=== PATIENT | male | born 1955 | race Caucasian/White ===

== ENCOUNTER → 2017-05-24 | Outpatient (CLI) | payer OTHER ==
--- NOTE | 2017-05-24 14:49 | CT ---
EXAMINATION TYPE: CT ChestAbdPelvis w con DATE OF EXAM: 05/24/2017 COMPARISON: 04/18/2015 HISTORY: Pleural effusion and abdominal bloating CT DLP: 1874 mGycm. Automated Exposure Control for Dose Reduction was Utilized. CONTRAST: CT scan of the thorax, abdomen and pelvis is performed with IV Contrast, patient injected with 100 mL of Omnipaque 300. FINDINGS: Some patient motion slightly limits the exam throughout the abdomen and pelvis. LUNGS: There is mild background centrilobular emphysematous change. A moderate right pleural effusion , similar in degree to the exam of 2015 with associated right basilar compressive atelectasis and sma ll left pleural effusion, mildly decreased in size from the prior exam of 2015 are redemonstrated. MEDIASTINUM: There are no greater than 1 cm hilar or mediastinal lymph nodes. Moderate pericardial ef fusion is also similar to the prior measuring up to 1.4 cm in thickness on series 3 image 47. The hea rt is enlarged. The main pulmonary artery is enlarged measuring 3.5 cm in transverse dimension. Ascen ding thoracic aorta is within normal limits of size measuring up to 3.4 cm. LIVER/GB: There is a cirrhotic morphology of the liver with mild nodularity of the hepatic contour an d generalized low attenuation. Perihepatic ascites and mesenteric congestion are moderate in degree a nd there is likely reactive minimal gallbladder wall hyperemia. No arterially enhancing hepatic kailee s are identified. PANCREAS: Moderate pancreatic parenchymal atrophy is noted. No ductal dilatation. SPLEEN: No significant abnormality is seen spleen is nonenlarged measuring 9.1 cm in craniocaudal dim ension. ADRENALS: Adrenal glands are mildly thickened, unchanged from the exam of 2015 most compatible with b enign adrenal gland hyperplasia. KIDNEYS: Kidneys enhance and excrete symmetrically. BOWEL: Bowel is nondilated. There is no evidence of congestive colopathy secondary to hepatocellular disease. GENITAL ORGANS: No gross abnormality seen. LYMPH NODES: Evaluation is slightly limited given the ascites and mesenteric congestion. Scattered no nenlarged mesenteric lymph nodes and pelvic lymph nodes are noted. No gross evidence of greater than 1cm abdominal or pelvic lymph nodes are appreciated. OSSEOUS STRUCTURES: Mild multilevel degenerative disc disease of the visualized thoracolumbar and lum bosacral spine are present. OTHER: Mild calcific and noncalcific atheromatous plaquing is seen of the abdominal aorta and its bra nches. IMPRESSION: 1. Cirrhotic quality of the liver with moderate perihepatic ascites and mesenteric congestion. No spl enomegaly to suggest portal venous hypertension. 2. Similar appearing moderate right pleural effusion and slightly decreased small left pleural effusi on in comparison to exam of 2015 with associated bibasilar compressive atelectasis. 3. Mild centrilobular pulmonary emphysema. 4. Moderate pericardial effusion measuring up to 1.4 cm in thickness, similar to exam of 2015. 5. Main pulmonary arterial enlargement that may clinically correlate with pulmonary arterial hyperten trish.
== END | disposition home or self-care (01) ==
LOC: RADCTMAIN 12:16
PROVIDERS: ATTEND Family Medicine
DX: J90 Pleural effusion, not elsewhere classified (principal); J98.11 Atelectasis; J43.2 Centrilobular emphysema; I31.3 Pericardial effusion (noninflammatory); I28.8 Other diseases of pulmonary vessels; K74.60 Unspecified cirrhosis of liver; R18.8 Other ascites; R19.00 Intra-abdominal and pelvic swelling, mass and lump, unspecified site
CPT/HCPCS: 71260; 74177; Q9967

== ENCOUNTER 2017-05-27 15:42 | Inpatient (IN) | payer OTHER ==
[2017-05-27] MEDS ORDERED: SODIUM CHLORIDE 0.9% 500 ML IV ONE (16:17)
--- NOTE | 2017-05-27 16:35 | ED ---
General Adult HPI - General Chief complaint: Shortness of Breath Stated complaint: SOB Time Seen by Provider: 05/27/17 15:54 Source: patient, RN notes reviewed, old records reviewed Mode of arrival: ambulatory Limitations: no limitations - History of Present Illness Initial comments: 62-year-old male history of A. fib and tachycardia-induced cardiomyopathy presents for evaluation of worsening dyspnea. Patient's currently on digoxin, anticoagulation, amiodarone and metoprolol. He states his dyspnea has worsened over the past week. Denies chest pain. Patient has had cough and lower extremity swelling. Patient denies nausea vomiting or diarrhea. Denies fever or chills. - Related Data Home Medications Medication Instructions Recorded Confirmed Multivitamins, Thera [Multivitamin 1 tab PO DAILY 04/19/15 05/27/17 (formulary)] Aspirin 81 mg PO HS 05/27/17 05/27/17 Carvedilol 25 mg PO BID 05/27/17 05/27/17 Furosemide [Lasix] 80 mg PO DAILY 05/27/17 05/27/17 Spironolactone [Aldactone] 25 mg PO DAILY 05/27/17 05/27/17 Ubidecarenone [Co Q-10] 100 mg PO DAILY 05/27/17 05/27/17 Vitamin E 1,000 unit PO DAILY 05/27/17 05/27/17 Warfarin [Coumadin] 5 mg PO DAILY 05/27/17 05/27/17 Allergies Allergy/AdvReac Type Severity Reaction Status Date / Time No Known Allergies Allergy Verified 05/27/17 16:25 Review of Systems ROS Statement: Those systems with pertinent positive or pertinent negative responses have been documented in the HPI. ROS Other: All systems not noted in ROS Statement are negative. Past Medical History Past Medical History: No Reported History History of Any Multi-Drug Resistant Organisms: None Reported Past Surgical History: No Surgical Hx Reported Additional Past Surgical History / Comment(s): broken leg when younger , afib Past Psychological History: No Psychological Hx Reported Smoking Status: Former smoker Past Alcohol Use History: None Reported Past Drug Use History: None Reported - Past Family History Father Family Medical History: Diabetes Mellitus Mother Additional Family Medical History / Comment(s): mental disorder - unspecified Sister(s) History Unknown: Yes Brother(s) History Unknown: Yes General Exam Limitations: no limitations General appearance: alert, in no apparent distress Head exam: Present: atraumatic, normocephalic Eye exam: Present: normal appearance, PERRL ENT exam: Present: normal exam Neck exam: Present: normal inspection. Absent: tenderness, meningismus Respiratory exam: Present: normal lung sounds bilaterally, rales (Final rales on lung base). Absent: respiratory distress Cardiovascular Exam: Present: tachycardia, irregular rhythm GI/Abdominal exam: Present: soft, distended. Absent: tenderness, guarding Extremities exam: Present: normal capillary refill, pedal edema Neurological exam: Present: alert, oriented X3, CN II-XII intact. Absent: motor sensory deficit Psychiatric exam: Present: normal affect, normal mood Skin exam: Present: warm, dry, intact. 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 Worker ] Respiratory 38 H 18 30 H Rate Blood Pressure Blood Pressure 76/54 79/50 76/55 [Sitting] O2 Sat by Pulse 98 99 99 Oximetry 05/27/17 05/27/17 05/27/17 17:00 17:10 17:20 Temperature Pulse Rate Pulse Rate [ 144 H 158 H 157 H 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 Off Worker ] Respiratory 30 H 30 H 28 H Rate Blood Pressure Blood Pressure 85/48 100/60 86/69 [Sitting] O2 Sat by Pulse 99 100 100 Oximetry 05/27/17 05/27/17 05/27/17 17:30 17:40 17:50 Temperature Pulse Rate Pulse Rate [ 142 H 132 H 150 H 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 Worker ] Respiratory 28 H 28 H 28 H Rate Blood Pressure Blood Pressure 98/72 85/64 85/66 [Sitting] O2 Sat by Pulse 100 100 99 Oximetry 05/27/17 05/27/17 18:00 18:30 Temperature Pulse Rate Pulse Rate [ 148 H 156 H 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 fib with RVR, patient is hypotensive. Mentating normally. Heart rate ranging from 130s to 180s. Patient has no chest pain. He denies missing any of his medication. He is currently on digoxin, anticoagulation, amiodarone and metoprolol. He is not a great historian when it comes to his medications although he states he has been taking them. Case is discussed with Dr. Moon given the low blood pressure and A. fib, recommends amiodarone effusion and metoprolol. These will be given with caution as patient's blood pressure is low. He does receive 500 mL is of normal saline bolus. Laboratory studies reveal hemoglobin 10.0, white blood cell count 7.0, troponin is negative. Lactic acid is elevated 2.5 secondary to hypotension [place] [address]. Echo will be obtained. Case is discussed with Dr. Mcrae who accepts patient to the ICU. Diagnosis: A. fib with RVR, congestive heart failure, hypertension. - Lab Data Result diagrams: 05/27/17 16:35 05/27/17 16:35 Lab Results 05/27/17 05/27/17 05/27/17 Range/Units 16:35 16:35 16:35 WBC 7.0 (3.8-10.6) k/uL RBC 4.34 (4.30-5.90) m/uL Hgb 10.0 L (13.0-17.5) gm/dL Hct 34.7 L (39.0-53.0) % MCV 79.9 L (80.0-100.0) fL MCH 23.0 L (25.0-35.0) pg MCHC 28.9 L (31.0-37.0) g/dL RDW 17.8 H (11.5-15.5) % Plt Count 113 L (150-450) k/uL Neutrophils % 77 % Lymphocytes % 14 % Monocytes % 6 % Eosinophils % 0 % Basophils % 0 % Neutrophils # 5.4 (1.3-7.7) k/uL Lymphocytes # 1.0 (1.0-4.8) k/uL Monocytes # 0.4 (0-1.0) k/uL Eosinophils # 0.0 (0-0.7) k/uL Basophils # 0.0 (0-0.2) k/uL Hypochromasia Marked Poikilocytosis Slight Anisocytosis Slight Microcytosis Slight PT (9.0-12.0) sec INR (<1.2) APTT (22.0-30.0) sec Sodium 134 L (137-145) mmol/L Potassium 4.6 (3.5-5.1) mmol/L Chloride 97 L (98-107) mmol/L Carbon Dioxide 23 (22-30) mmol/L Anion Gap 14 mmol/L BUN 44 H (9-20) mg/dL Creatinine 1.00 (0.66-1.25) mg/dL Est GFR (MDRD) Af Amer >60 (>60 ml/min/1.73 sqM) Est GFR (MDRD) Non-Af >60 (>60 ml/min/1.73 sqM) Glucose 105 H (74-99) mg/dL Plasma Lactic Acid Ronnie 3.5 H* (0.7-2.0) mmol/L Calcium 9.0 (8.4-10.2) mg/dL Magnesium 2.2 (1.6-2.3) mg/dL Total Bilirubin 2.5 H (0.2-1.3) mg/dL AST 36 (17-59) U/L ALT 34 (21-72) U/L Alkaline Phosphatase 154 H (38-126) U/L Total Creatine Kinase (55-170) U/L CK-MB (CK-2) (0.0-2.4) ng/mL CK-MB (CK-2) Rel Index Troponin I (0.000-0.034) ng/mL NT-Pro-B Natriuret Pep pg/mL Total Protein 6.8 (6.3-8.2) g/dL Albumin 3.2 L (3.5-5.0) g/dL Digoxin 0.7 ng/mL 05/27/17 05/27/17 05/27/17 Range/Units 16:35 16:35 16:35 WBC (3.8-10.6) k/uL RBC (4.30-5.90) m/uL Hgb (13.0-17.5) gm/dL Hct (39.0-53.0) % MCV (80.0-100.0) fL MCH (25.0-35.0) pg MCHC (31.0-37.0) g/dL RDW (11.5-15.5) % Plt Count (150-450) k/uL Neutrophils % % Lymphocytes % % Monocytes % % Eosinophils % % Basophils % % Neutrophils # (1.3-7.7) k/uL Lymphocytes # (1.0-4.8) k/uL Monocytes # (0-1.0) k/uL Eosinophils # (0-0.7) k/uL Basophils # (0-0.2) k/uL Hypochromasia Poikilocytosis Anisocytosis Microcytosis PT 17.2 H (9.0-12.0) sec INR 1.9 H (<1.2) APTT 26.5 (22.0-30.0) sec Sodium (137-145) mmol/L Potassium (3.5-5.1) mmol/L Chloride (98-107) mmol/L Carbon Dioxide (22-30) mmol/L Anion Gap mmol/L BUN (9-20) mg/dL Creatinine (0.66-1.25) mg/dL Est GFR (MDRD) Af Amer (>60 ml/min/1.73 sqM) Est GFR (MDRD) Non-Af (>60 ml/min/1.73 sqM) Glucose (74-99) mg/dL Plasma Lactic Acid Ronnie (0.7-2.0) mmol/L Calcium (8.4-10.2) mg/dL Magnesium (1.6-2.3) mg/dL Total Bilirubin (0.2-1.3) mg/dL AST (17-59) U/L ALT (21-72) U/L Alkaline Phosphatase (38-126) U/L Total Creatine Kinase 39 L (55-170) U/L CK-MB (CK-2) 0.6 (0.0-2.4) ng/mL CK-MB (CK-2) Rel Index 1.5 Troponin I <0.012 (0.000-0.034) ng/mL NT-Pro-B Natriuret Pep 08330 pg/mL Total Protein (6.3-8.2) g/dL Albumin (3.5-5.0) g/dL Digoxin ng/mL Critical Care Time Critical Care Time: Yes Total Critical Care Time: 35 Disposition Clinical Impression: Atrial fibrillation with RVR, Congestive heart failure Disposition: ADMITTED IP TO THIS [facility] Condition: Serious Referrals: Demario Aragon MD [Primary Care Provider] - 1-2 days Decision to Admit Reason: Admit from EC Decision Date: 05/27/17 Decision Time: 19:05
[2017-05-27] MEDS ORDERED: AMIODARONE 450 MG in DEXTROSE 5% IN WATER 250 ML IV ONE ×2 (16:50)
--- NOTE | 2017-05-27 16:52 | XR ---
EXAMINATION TYPE: XR chest 1V portable DATE OF EXAM: 05/27/2017 COMPARISON: 04/18/2015 HISTORY: Short of breath TECHNIQUE: Single frontal view of the chest is obtained. FINDINGS: Heart is enlarged. There is blunting of right costophrenic angle with moderate right pleur al effusion. There is mild pulmonary congestion. There are chest leads. IMPRESSION: There is right pleural effusion that is increased compared to old exam. There is clearin g of left pleural effusion compared to old exam. There is evidence for mild heart failure.
[2017-05-27 16:53] LABS: Anisocytosis Slight; Basophils % (A) 0 %; Eosinophils % (A) 0 %; HCT 34.7 % (39.0-53.0); Hypochromasia Marked; Lymphocytes % (A) 14 %; MCHC 28.9 g/dL (31.0-37.0); MCV 79.9 fL (80.0-100.0); Mean Platelet Volume 8.1; Microcytosis Slight; Monocytes # (A) 0.4 k/uL (0-1.0); Monocytes % (A) 6 %; Neutrophils # (A) 5.4 k/uL (1.3-7.7); Neutrophils % (A) 77 %; Platelet Count 113 k/uL (150-450); Poikilocytosis Slight; RBC 4.34 m/uL (4.30-5.90); RDW 17.8 % (11.5-15.5)
[2017-05-27 17:00] LABS: ALT 34 U/L (21-72); AST 36 U/L (17-59); Albumin 3.2 g/dL (3.5-5.0); Alkaline Phosphatase 154 U/L (38-126); Anion Gap 14 mmol/L; Blood Urea Nitrogen 44 mg/dL (9-20); Carbon Dioxide 23 mmol/L (22-30); Chloride 97 mmol/L (98-107); Digoxin 0.7 ng/mL; Glucose 105 mg/dL (74-99); Magnesium 2.2 mg/dL (1.6-2.3); Potassium 4.6 mmol/L (3.5-5.1); Sodium 134 mmol/L (137-145); Total Bilirubin 2.5 mg/dL (0.2-1.3); Total Protein 6.8 g/dL (6.3-8.2)
[2017-05-27] MEDS ORDERED: METOPROLOL TARTRATE 5 MG/5 ML VIAL IVP SCH (17:00)
[2017-05-27 17:09] LABS: INR 1.9 (<1.2); Partial Thromboplastin Time 26.5 sec (22.0-30.0); Prothrombin Time 17.2 sec (9.0-12.0)
[2017-05-27 17:16] LABS: Creatine Kinase 39 U/L (55-170)
[2017-05-27] MEDS ORDERED: SODIUM CHLORIDE 0.9% 200 ML IV ONE (17:25)
[2017-05-27 17:28] LABS: Creatine Kinase MB 0.6 ng/mL (0.0-2.4); Troponin I <0.012 ng/mL (0.000-0.034)
[2017-05-27] MEDS ORDERED: NALOXONE 0.4 MG/ML 1 ML VIAL IV PRN (18:53)
[2017-05-27 20:40] LABS: Glucose,Whole Blood 125 mg/dL (75-99)
[2017-05-27] MEDS ORDERED: FUROSEMIDE 40 MG TAB PO STA (21:11)
[2017-05-27] MEDS ORDERED: DEXTROSE 5% IN WATER 250 ML with AMIODARONE 300 MG IV ONE (21:30)
[2017-05-27 21:31] LABS: Appearance,Urine Cloudy (Clear); Bacteria,Urine Occasional /hpf; Bilirubin,Urine Negative (Negative); Blood,Urine Negative (Negative); Cellular Casts,Urine 5 /lpf (0); Color,Urine Dark Yellow; Glucose,Urine (UA) Negative (Negative); Granular Casts,Urine 26 /lpf (0); Hyaline Casts,Urine 5 /lpf (0-2); Ketones,Urine Negative (Negative); Leukocyte Esterase,Urine Negative (Negative); Mucus,Urine Few /hpf; Nitrite,Urine Negative (Negative); Protein,Urine 1+ (Negative); RBC,Urine 1 /hpf (0-5); Specific Gravity,Urine 1.019 (1.001-1.035); Squamous Epithelial Cell,Urine 1 /hpf (0-4); WBC,Urine 4 /hpf (0-5)
[2017-05-28] MEDS: HEPARIN SODIUM,PORCINE 5,000 UNIT/ML 1 ML VIAL SQ SCH ×2 (00:06→08:21)
[2017-05-28 00:19] VITALS: TEMP 98.1
[2017-05-28] MEDS ORDERED: AMIODARONE 450 MG in DEXTROSE 5% IN WATER 250 ML IV SCH ×2 (03:06)
[2017-05-28 05:01] LABS: Anisocytosis Slight; Basophils % (A) 0 %; Eosinophils % (A) 1 %; HCT 35.5 % (39.0-53.0); HGB 10.3 gm/dL (13.0-17.5); Hypochromasia Marked; Lymphocytes # (A) 2.1 k/uL (1.0-4.8); Lymphocytes % (A) 25 %; MCH 23.5 pg (25.0-35.0); MCHC 29.1 g/dL (31.0-37.0); MCV 80.8 fL (80.0-100.0); Mean Platelet Volume 10.2; Monocytes # (A) 0.7 k/uL (0-1.0); Monocytes % (A) 9 %; Neutrophils # (A) 4.9 k/uL (1.3-7.7); Neutrophils % (A) 60 %; Platelet Count 124 k/uL (150-450); RBC 4.39 m/uL (4.30-5.90); RDW 17.8 % (11.5-15.5); WBC 8.1 k/uL (3.8-10.6)
[2017-05-28 05:22] LABS: ALT 36 U/L (21-72); AST 35 U/L (17-59); Albumin 3.3 g/dL (3.5-5.0); Alkaline Phosphatase 148 U/L (38-126); Anion Gap 15 mmol/L; Blood Urea Nitrogen 48 mg/dL (9-20); Calcium 9.1 mg/dL (8.4-10.2); Carbon Dioxide 21 mmol/L (22-30); Chloride 97 mmol/L (98-107); Glucose 129 mg/dL (74-99); Magnesium 2.2 mg/dL (1.6-2.3); Phosphorus 4.3 mg/dL (2.5-4.5); Potassium 5.2 mmol/L (3.5-5.1); Sodium 133 mmol/L (137-145); Total Bilirubin 2.5 mg/dL (0.2-1.3); Total Protein 6.9 g/dL (6.3-8.2)
[2017-05-28 05:27] LABS: INR 1.7 (<1.2); Prothrombin Time 15.8 sec (9.0-12.0)
[2017-05-28] MEDS ORDERED: LIDOCAINE 2% INJ 20 MG/ML (20 ML MDV) ONE ×2 (05:35→06:01)
[2017-05-28] MEDS ORDERED: SODIUM CHLORIDE 0.9% 500 ML IV ONE ×3 (05:41→06:34)
[2017-05-28] MEDS ORDERED: EPINEPHrine 10 ML SYRINGE (0.1 MG/ML) IV ONE ×4 (05:45→06:02)
[2017-05-28] MEDS ORDERED: SODIUM BICARB 8.4% 50 ML SYR (1 MEQ/ML) IV ONE (05:50)
[2017-05-28] MEDS ORDERED: ATROPINE SULFATE 0.1 MG/ML 10ML SYRINGE IVP ONE ×2 (05:50→06:05)
[2017-05-28] MEDS ORDERED: NOREPINEPHRIN 4 MG-0.9% NS PMX 4 MG/250 ML ML IV ONE (05:59)
[2017-05-28] MEDS ORDERED: SODIUM CHLORIDE 0.9% 99 ML with VASOPRESSIN 20 UNIT IV SCH ×2 (06:00)
[2017-05-28] MEDS ORDERED: LIDOCAINE 2% INJ 20 MG/ML SQ ONE (06:03)
--- NOTE | 2017-05-28 06:21 | P.PCN ---
Preoperative Diagnosis: Transvenous temporary pacing procedure Indication for the procedure: Severe underlying bradycardia complete heart block , patient went asystolic required CPR in the Surgical Aide ACLS protocol, return of pulse and rhythm, TVP placed Patient was brought to the EP lab in a fasting state. Written informed consent was obtained prior to the procedure. The right groin was prepped and draped as a protocol. A 6-Colomb[place] sheath was placed in the right femoral vein. Via this, a temporary pacing catheter was placed in the right ventricle. Thresholds were interrogated. Temporary pacing was performed through the rest of the procedure. At the end of the entire procedure, the TVP was removed. The sheath was removed and hemostasis was assured. Patient tolerated the procedure well without any acute complications. Procedure performed Transvenous temporary pacing
[2017-05-28 07:06] LABS: Glucose,Whole Blood 132 mg/dL (75-99)
[2017-05-28] MEDS ORDERED: NOREPINEPHRIN 16 MG-0.9%NS PMX 16 MG/250 ML ML IV SCH (08:15)
[2017-05-28] MEDS ORDERED: PANTOPRAZOLE 40 MG/10 ML VIAL IV SCH (09:00)
[2017-05-28 09:56] LABS: ABG HCO3 14 mmol/L (21-25); ABG PCO2 39 mmHg (35-45); ABG PH 7.18 (7.35-7.45); ABG PO2 107 mmHg (83-108); ABG TCO2 15 mmol/L (19-24)
[2017-05-28 09:57] LABS: ABG Base Excess -12.9 mmol/L
[2017-05-28] MEDS ORDERED: SODIUM BICARB SYR (1 MEQ/ML) 10 ML SYRINGE ONE (10:00)
[2017-05-28] MEDS ORDERED: EPINEPHrine 10 ML SYRINGE (0.1 MG/ML) ONE (10:00)
[2017-05-28] MEDS ORDERED: ATROPINE SULFATE 0.1 MG/ML 10ML SYRINGE ONE (10:00)
--- NOTE | 2017-05-28 10:23 | XR ---
EXAMINATION TYPE: XR chest 1V portable DATE OF EXAM: 05/28/2017 HISTORY: post intubation. REFERENCE: Previous study dated 05/27/2017. FINDINGS: The patient is intubated. ET tube is in satisfactory position with the tip being 4 cm from the braxton. An NG tube is been placed. Its tip is in the stomach. The heart is enlarged. There is a worsening right-sided pleural reaction likely representing fluid. T here are some questionable opacity in the left midlung. The heart is enlarged. IMPRESSION: 1. SATISFACTORY ET TUBE PLACEMENT. 2. MODERATE RIGHT-SIDED PLEURAL EFFUSION. 3. CARDIOMEGALY. 4. I COULD NOT EXCLUDE SOME AIRSPACE DISEASE IN THE LEFT MIDLUNG.
[2017-05-28] MEDS ORDERED: MORPHINE SULFATE 2 MG/ML SYRINGE IV PRN ×2 (11:33)
--- NOTE | 2017-05-28 11:36 | P.CNPUL ---
History of Present Illness Consult date: 05/28/17 Reason for consult: dyspnea, hypoxemia, pleural effusion, abnormal CXR/CT Chief complaint: Shortness of breath History of present illness: Consult dated 05/28/2017 This is a 62-year-old male who was admitted on May 27. He initially came into the emergency room with atrial fibrillation with rapid ventricular response and congestive heart failure. Subsequent to that, while in the ICU, he developed bradycardia. The application security engineer came in and placed a transvenous pacemaker. Unfortunately the patient had cardiopulmonary arrest 2. The first time, he rested for about 5 minutes had cardiopulmonary resuscitation and return of spontaneous circulation. The second time unfortunately the rest was much longer for about 40 minutes with prolonged CPR and eventual return of spontaneous circulation. Currently the patient's on mechanical ventilator. He is on the assist control mode rate of 20 tidal volume is 450 FiO2 is 100% and PEEP is 5. Arterial blood gases show a PaO2 of 107 a PaCO2 of 39 and a pH is 7.18. The patient's on a saline IV at 100 mL an hour norepinephrine at 50 mcg/ m and vasopressin appointment 03 units per minute. The chest x-ray shows a right-sided pleural effusion and possible left midlung airspace disease. The patient is totally unresponsive. He does breathe over the ventilator. No corneal reflex. No gag reflex. No pupillary reflex. Doll's eyes reflexes are absent. No response to verbal painful stimuli. I did have a long conversation with the family including 1 sister and 2 brothers. They're inclined to withdraw life support on this patient. They will let me know. Review of Systems ROS unobtainable: due to endotracheal tube Past Medical History Past Medical History: Atrial Fibrillation, Deep Vein Thrombosis (DVT), Hypertension, Thyroid Disorder Additional Past Medical History / Comment(s): broken rt leg as child,"told he has an overactive thyroid. blood clot behind lt knee. per 2015 summary it was mentioned that pt had chf, copd, cardiomyopathy but pt stated was not aware of this. History of Any Multi-Drug Resistant Organisms: None Reported Past Surgical History: No Surgical Hx Reported Additional Past Surgical History / Comment(s): broken leg when younger , afib Past Anesthesia/Blood Transfusion Reactions: No Reported Reaction Past Psychological History: No Psychological Hx Reported Additional Psychological History / Comment(s): pt lives with his brother. uses a cane when up. n o home care services. Smoking Status: Former smoker Past Alcohol Use History: Occasional Additional Past Alcohol Use History / Comment(s): started smoking 1971 and derek 2014 smoked 1 ppd. Past Drug Use History: Marijuana Additional Drug Use History / Comment(s): smoked marijuana and used crack-quit 2007 - Past Family History Father Family Medical History: Diabetes Mellitus Mother Additional Family Medical History / Comment(s): mental disorder - unspecified Sister(s) History Unknown: Yes Brother(s) History Unknown: Yes Medications and Allergies Home Medications Medication Instructions Recorded Confirmed Type Multivitamins, Thera [Multivitamin 1 tab PO DAILY 04/19/15 05/27/17 History (formulary)] Aspirin 81 mg PO HS 05/27/17 05/27/17 History Carvedilol 25 mg PO BID 05/27/17 05/27/17 History Furosemide [Lasix] 80 mg PO DAILY 05/27/17 05/27/17 History Spironolactone [Aldactone] 25 mg PO DAILY 05/27/17 05/27/17 History Ubidecarenone [Co Q-10] 100 mg PO DAILY 05/27/17 05/27/17 History Vitamin E 1,000 unit PO DAILY 05/27/17 05/27/17 History Warfarin [Coumadin] 5 mg PO DAILY 05/27/17 05/27/17 History Allergies Allergy/AdvReac Type Severity Reaction Status Date / Time No Known Allergies Allergy Verified 05/27/17 16:25 Physical Exam Osteopathic Statement: *. No significant issues noted on an osteopathic structural exam other than those noted in the History and Physical/Consult. Vitals: Vital Signs Temp Pulse Pulse Resp BP BP Pulse Ox 05/28/17 10:40 80 23 85/48 99 05/28/17 10:30 79 23 95/53 99 05/28/17 10:20 80 23 86/57 99 05/28/17 10:10 80 24 86/57 99 05/28/17 10:00 79 24 87/52 99 05/28/17 09:50 80 25 H 87/53 98 05/28/17 09:40 80 24 97 05/28/17 09:30 80 24 93 L 05/28/17 09:20 79 25 H 63/43 41 L 05/28/17 09:10 79 25 H 68/44 38 L 05/28/17 09:00 79 24 42 L 05/28/17 08:50 83 24 36/26 44 L 05/28/17 08:40 80 23 87 L 05/28/17 08:30 80 23 91 L 05/28/17 08:20 79 21 94 L 05/28/17 08:10 80 20 96 05/28/17 08:00 79 19 100 05/28/17 07:50 79 17 44/25 100 05/28/17 07:40 89 23 05/28/17 07:30 89 19 76 L 05/28/17 07:20 66 81/63 05/28/17 07:10 50 L 204/133 05/28/17 07:00 0 L 204/133 98 05/28/17 05:30 70/48 90 L 05/28/17 05:20 37 H 73/55 86 L 05/28/17 05:10 82 H 76/68 85 L 05/28/17 05:00 48 L 55 H 71/60 94 L 05/28/17 04:50 32 L 35 H 79/51 98 05/28/17 04:40 36 L 21 76/50 96 05/28/17 04:30 127 H 17 76/58 97 05/28/17 04:20 134 H 25 H 76/58 98 05/28/17 04:10 133 H 25 H 78/67 98 05/28/17 04:00 128 H 32 H 73/57 97 05/28/17 03:50 125 H 27 H 73/57 97 05/28/17 03:40 130 H 34 H 76/59 98 05/28/17 03:30 113 H 26 H 80/51 98 18 03:20 139 H 22 99 05/28/17 03:10 117 H 37 H 79/57 99 05/28/17 03:00 121 H 30 H 79/57 99 05/28/17 02:30 142 H 32 H 72/58 100 18 02:00 153 H 28 H 79/62 99 05/28/17 01:30 120 H 25 H 75/63 98 05/28/17 01:00 127 H 22 76/58 99 05/28/17 00:45 135 H 26 H 75/56 99 05/28/17 00:30 138 H 28 H 70/56 100 18 00:15 129 H 34 H 100 05/28/17 00:00 98.1 F 141 H 24 70/56 100 05/27/17 23:45 137 H 39 H 81/60 100 18 23:30 130 H 30 H 72/56 100 18 23:15 143 H 43 H 72/56 100 05/27/17 23:00 140 H 21 72/56 100 05/27/17 22:45 151 H 41 H 68/60 100 18 22:30 138 H 57 H 71/58 99 05/27/17 22:15 117 H 43 H 59/32 100 05/27/17 22:00 145 H 36 H 76/61 99 05/27/17 21:45 125 H 31 H 83/63 95 05/27/17 21:40 147 H 32 H 77/63 97 05/27/17 21:30 141 H 33 H 83/66 100 05/27/17 21:20 135 H 37 H 81/59 99 05/27/17 21:10 157 H 26 H 105/74 98 05/27/17 21:00 133 H 43 H 71/53 97 05/27/17 20:50 144 H 53 H 73/50 98 05/27/17 20:40 96.8 F L 172 H 28 H 100 05/27/17 20:00 98.3 F 150 H 30 H 96/57 100 05/27/17 19:30 135 H 28 H 95/57 99 05/27/17 19:00 133 H 30 H 96/53 100 05/27/17 18:30 156 H 28 H 100/69 100 18 18:00 148 H 28 H 93/66 100 18 17:50 150 H 28 H 85/66 99 05/27/17 17:40 132 H 28 H 85/64 100 05/27/17 17:30 142 H 28 H 98/72 100 18 17:20 157 H 28 H 86/69 100 05/27/17 17:10 158 H 30 H 100/60 100 18 17:00 144 H 30 H 85/48 99 05/27/17 16:55 145 H 30 H 76/55 99 05/27/17 16:45 161 H 18 79/50 99 05/27/17 16:30 168 H 38 H 76/54 98 05/27/17 16:22 148 H 34 H 73/58 05/27/17 16:07 155 H 38 H 80/56 99 05/27/17 15:47 98.9 F 66 44 H 144/89 93 L Intake and Output 05/27/17 05/28/17 05/28/17 22:59 06:59 14:59 Intake Total 49.917 1075.3 1300 Output Total 50 130 135 Balance -0.083 945.3 1165 Intake: IV 20 1075.3 1300 0.9 KVO 20 80 1300 Intake, IV Titration 29.917 Amount Amiodarone 450 mg In 29.917 Dextrose 5% in Water 250 ml @ 1 MG/MIN 34.53 mls/ hr IV .[id number] ONE Rx#: [id number] Output: Urine 50 130 135 Other: Voiding Method Indwelling Catheter Indwelling Catheter Weight 73.482 kg 75.6 kg No acute distress. No response to verbal or painful stimuli. The patient does over breathe the ventilator. HEENT examination is grossly unremarkable. Mucous membranes are moist. No oral lesions. No pupillary reflex. No corneal reflex. No gag reflex. Neck supple. Full range of motion. No adenopathy thyromegaly or neck vein distention. Cardiovascular examination reveals regular rhythm rate. S1-S2 normal. No S3 or S4. No discernible murmur noted. Lungs reveal clear breath sounds. Her sounds are equal bilaterally. No adventitious lung sounds including wheezes rhonchi or crackles. Abdomen soft bowel sounds are heard. No masses or tenderness. Extremities are intact. No cyanosis clubbing or edema. Skin is without rash or lesion. Neurologic examination reveals no response to verbal or painful stimuli. The patient does over breathe the ventilator. No corneal reflex. No gag reflex. No pupillary reflex. Results - Laboratory Findings CBC and BMP: 05/28/17 04:45 05/28/17 04:45 ABG ABG pH 7.18 (7.35-7.45) L* 05/28/17 09:47 ABG pCO2 39 mmHg (35-45) 05/28/17 09:47 ABG pO2 107 mmHg (83-108) 05/28/17 09:47 ABG O2 Saturation 97.0 % (94-97) 05/28/17 09:47 PT/INR, D-dimer PT 15.8 sec (9.0-12.0) H 05/28/17 05:05 INR 1.7 (<1.2) H 05/28/17 05:05 Abnormal lab findings: Abnormal Labs 05/27/17 05/27/17 05/27/17 16:35 16:35 16:35 Hgb 10.0 L Hct 34.7 L MCV 79.9 L MCH 23.0 L MCHC 28.9 L RDW 17.8 H Plt Count 113 L PT INR ABG pH ABG HCO3 ABG Total CO2 Sodium 134 L Potassium Chloride 97 L Carbon Dioxide BUN 44 H Creatinine Glucose 105 H POC Glucose (mg/dL) Plasma Lactic Acid Ronnie 3.5 H* Total Bilirubin 2.5 H Alkaline Phosphatase 154 H Total Creatine Kinase Albumin 3.2 L Urine Protein Urine Bacteria Hyaline Casts Urine Mucus 05/27/17 05/27/17 05/27/17 16:35 16:35 20:38 Hgb Hct MCV MCH MCHC RDW Plt Count PT 17.2 H INR 1.9 H ABG pH ABG HCO3 ABG Total CO2 Sodium Potassium Chloride Carbon Dioxide BUN Creatinine Glucose POC Glucose (mg/dL) 125 H Plasma Lactic Acid Ronnie Total Bilirubin Alkaline Phosphatase Total Creatine Kinase 39 L Albumin Urine Protein Urine Bacteria Hyaline Casts Urine Mucus 05/27/17 05/27/17 05/28/17 20:55 21:16 04:45 Hgb 10.3 L Hct 35.5 L MCV MCH 23.5 L MCHC 29.1 L RDW 17.8 H Plt Count 124 L PT INR ABG pH ABG HCO3 ABG Total CO2 Sodium Potassium Chloride Carbon Dioxide BUN Creatinine Glucose POC Glucose (mg/dL) Plasma Lactic Acid Ronnie 3.2 H* Total Bilirubin Alkaline Phosphatase Total Creatine Kinase Albumin Urine Protein 1+ H Urine Bacteria Occasional H Hyaline Casts 5 H Urine Mucus Few H 05/28/17 05/28/17 05/28/17 04:45 05:05 07:03 Hgb Hct MCV MCH MCHC RDW Plt Count PT 15.8 H INR 1.7 H ABG pH ABG HCO3 ABG Total CO2 Sodium 133 L Potassium 5.2 H Chloride 97 L Carbon Dioxide 21 L BUN 48 H Creatinine 1.29 H Glucose 129 H POC Glucose (mg/dL) 132 H Plasma Lactic Acid Ronnie Total Bilirubin 2.5 H Alkaline Phosphatase 148 H Total Creatine Kinase Albumin 3.3 L Urine Protein Urine Bacteria Hyaline Casts Urine Mucus 05/28/17 09:47 Hgb Hct MCV MCH MCHC RDW Plt Count PT INR ABG pH 7.18 L* ABG HCO3 14 L ABG Total CO2 15 L Sodium Potassium Chloride Carbon Dioxide BUN Creatinine Glucose POC Glucose (mg/dL) Plasma Lactic Acid Ronnie Total Bilirubin Alkaline Phosphatase Total Creatine Kinase Albumin Urine Protein Urine Bacteria Hyaline Casts Urine Mucus - Diagnostic Findings Chest x-ray: image reviewed (Labs x-rays medications are all reviewed.) Assessment and Plan Assessment: Assessment Status post cardiopulmonary arrest with prolonged resuscitation and probable anoxic brain injury. Atrial fibrillation with rapid ventricular response. Congestive heart failure. Bradycardia requiring transvenous pacemaker insertion Suspected severe anoxic brain injury History of hypertension History of atrial fibrillation Plan: Plan I had a long discussion with the family. The family's inclination is to withdraw life support and make the patient comfortable. I think that's very appropriate given his current situation. The patient was placed on a morphine drip. We'll add a scopolamine patch. We can use Ativan for sedation. No additional recommendations are made. Prognosis is very poor. His neurologic examination has been documented. No gag reflex. No response to verbal or painful stimuli. Absent doll's eyes. No pupillary reflex. No corneal reflex. The patient does over breathe the ventilator. Time with Patient: Greater than 30
[2017-05-28] MEDS ORDERED: MORPHINE SULFATE 2 MG/ML SYRINGE ONE (11:41)
--- NOTE | 2017-05-28 12:07 | CONS ---
CONSULTATION Mr. Lui is a 62-year-old male patient, who presented to the hospital with A. lucas with RVR and his first 12-lead ECG last night showed atrial fibrillation with RVR at 161 beats per minute. He was started on IV amiodarone. Through the night his blood pressure was between 70 to 80 mmHg but his skin was warm. This morning on IV amiodarone, he converted to sinus rhythm and had complete heart block that required transcutaneous pacing. He was taken urgently to the [facility] for TVP but as he arrived in the [facility] while he was completed alert and awake, he had an asystolic cardiac arrest and had to be resuscitated with multiple epinephrine injections and atropine and he did recover his rhythm and pulse. A TVP was placed and he was sent back to the ICU. In the ICU, he start coding once again and is now on pressors. His overall prognosis is poor. Past history is not available, but he does have a history of heavy alcohol use, history of cardiomyopathy and heart failure. Medications include multivitamin, aspirin, carvedilol, Lasix, spironolactone, coenzyme Q-10, vitamin E, Coumadin. ALLERGIES: No drug allergies. REVIEW OF SYSTEMS: Not available. FAMILY HISTORY: Noncontributory. PHYSICAL EXAMINATION: On examination, when I saw him he is afebrile, but he had no pulse at that time. Prior to that, his pulse was 150, 160 beats per minute. Prominent JVD breath sounds are reduced bilaterally. He is intubated. Heart sounds, S2 is soft. Abdomen is soft. Extremities are warm. His skin color is dusky. During the TVP, his venous pressures were significantly elevated. IMPRESSION: 1. Severe cardiomyopathy. 2. Atrial fibrillation with rapid ventricular rate. 3. Conversion to sinus rhythm and complete heart block. On IV amiodarone, status post TVP placement. 4. Asystolic cardiac arrest. 5. 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 SUGGEST: Symptomatic and ICU care to continue for now. Address electrolyte imbalance. Hold off on carvedilol, continue aspirin. Currently, he is on norepinephrine. Overall prognosis is poor. MMODL / IJN: [id number] /
[2017-05-28 12:11] VITALS: BMI 24.6
[2017-05-28 13:02] VITALS: BP 77/52; PULSE 23; RESP 0
--- NOTE | 2017-05-28 14:14 | PN ---
PROGRESS NOTE CHIEF COMPLAINT: Total organ failure. HISTORY OF PRESENT ILLNESS: This is a 62-year-old man who was admitted with atrial fibrillation with a heart rate around 200. Started to come down to around 130 and then suddenly dropped to 30. He became completely unresponsive and aneuric. He was given vasopressors without any effect and he has continued to deteriorate on ventilator. The family has been made aware of the diagnosis and prognosis and are going to take him off the ventilator. IMPRESSION: 1. Total organ failure. 2. Atrial fibrillation with rapid ventricular response. 3. Congestive heart failure. 4. Pleural effusion. 5. Chronic obstructive pulmonary disease. PLAN: Family is going to give the order to stop ventilation. MMODL / IJN: [id number] /
--- NOTE | 2017-05-28 14:34 | HP ---
HISTORY AND PHYSICAL CHIEF COMPLAINT: Shortness of breath. HISTORY OF PRESENT ILLNESS: This is a other admission this 62-year-old, white male. He came to the office with extreme shortness of breath. He was known to have a pleural effusion. He has been in atrial fibrillation. In the office is extremely dyspneic and he was sent straight for admission. He denied chest pain, fever and chills, cough, hemoptysis, sputum production, etc. REVIEW OF SYSTEMS: Otherwise not obtained or unremarkable. He had a lot of difficulty breathing when he tried to lie down. His abdomen was also bloated. PAST MEDICAL HISTORY: Past medical, family history, personal and social histories reveal that he was on Eliquis 5 mg twice a day, carvedilol 25 mg twice a day, Lasix 80 once a day, Aldactone 25 once a day, fish oil, multivitamin. He has had cardiac arrhythmia for 2 years. He has not had surgery. He used to smoke fairly heavily for 43 years. He uses alcohol occasionally. PHYSICAL EXAMINATION: Blood pressure is 148/88 with a pulse of 155, respirations of 50. He is afebrile. In general he appeared to be pale and in acute respiratory distress. Skin was dry. Head ears, eyes, nose, mouth, and throat were normal and neck veins were not distended. Chest demonstrated poor breath sounds throughout and he had tight wheezing on expiration. Cardiac exam demonstrated rapid heart beat and the abdomen is slightly protuberant and nontender. Extremities are normal. Neurologically he is intact. IMPRESSION: 1. Acute congestive heart failure. 2. Supraventricular tachycardia with rapid ventricular response. 3. Chronic obstructive pulmonary disease. PLAN: 1. Bed rest. 2. IV fluids. 3. Nasal O2. 4. Diuresis. 5. Urgent consult with Cardiology and Pulmonology. MMODL / IJN: [id number] /
[2017-05-28] MEDS ORDERED: CARVEDILOL 12.5 MG TAB PO SCH (17:30)
[2017-05-28] MEDS ORDERED: ASPIRIN 81 MG PO SCH (21:00)
[2017-05-29] MEDS ORDERED: SPIRONOLACTONE 25 MG TAB PO SCH (09:00)
[2017-05-29] MEDS ORDERED: WARFARIN 5 MG TAB PO SCH (18:00)
--- NOTE | 2017-05-31 09:43 | DS ---
DISCHARGE SUMMARY DATE OF DISCHARGE: 05/28/2017 CHIEF COMPLAINT: Shortness of breath. HISTORY OF PRESENT ILLNESS: Details of this man's history and physical can be found in the initial workup. LABORATORY STUDIES: While he was in the hospital, he had laboratory studies, details which can be found in the laboratory section of his chart. COURSE IN HOSPITAL: After admission, he was placed in ICU and seen by Cardiology and Pulmonology. His heart rate was over 200. It was gradually brought down to around 130 beats a minute. Then suddenly dropped to 30 and have his first cardiorespiratory arrest. He was resuscitated and then had another subsequent arrest which took about 40 to 45 minutes of protocol to bring him back. After that, he went into total organ failure with renal shutdown, respiratory failure and was placed on a ventilator. It was clear that his prognosis was extremely poor and the case was discussed with the family who had decided to take him off the ventilator. FINAL DIAGNOSES: 1. Cardiorespiratory arrest. 2. Acute congestive heart failure. 3. Atrial fibrillation with rapid ventricular response. 4. Atrial fibrillation induced cardiomyopathy. 5. History of alcohol abuse. 6. Chronic obstructive pulmonary disease. 7. Total body organ failure. OPERATIONS: None. CONSULTATIONS: Pulmonology and Cardiology. He . MMODL / IJN: [id number] /
--- NOTE | 2017-06-01 15:55 | CDI ---
Last Revision, April 2017 Documentation Clarification Form Mortality Review Date: 06/01/2017 3:48:00 PM From: Migdalia Barlow RN, CCDS Admit Date: 05/27/2017 6:59:00 PM Patient Name: Keshawn Lui Visit Number: [id number] ATTENTION: The Clinical Documentation Specialists (CDI) and [facility] Coding Staff appreciate your assistance in clarifying documentation. Please respond to the clarification below the line at the bottom and electronically sign. The CDI & [facility] Coding staff will review the response and follow-up if needed. Please note: Queries are made part of the Legal Health Record. If you have any questions, please contact the author of this message via ITS. Dr. Demario Aragon Atrial fibrillation is documented in the in the EC notes with a rapid rate. The patient then converted to 3rd degree heart block on an Amioradarone drip History/Risk Factors: ETOH Abuse Clinical Indicators: 05/28 H&P: "He came to the office with extreme shortness of breath. He was known to have a pleural effusion. He has been in atrial fibrillation. In the office is extremely dyspneic and he was sent straight for admission. He has had a cardiac arrhythmia for 2 years. " EKG/telemetry: initial EKG AF RVR Treatment: IV AMIO loading Bolus followed by Drip Lopressor 2.5 mg IVP x1 dose Consults: Cardiology In your professional opinion, can you please clarify the type of atrial fibrillation, if known? Chronic/Permanent Paroxysmal Persistent Other, please specify Unable to determine Please continue to document in your progress notes and discharge summary in order to capture severity of illness and risk of mortality. Include clinical findings that support your diagnosis. MTDD
--- NOTE | 2017-06-01 16:13 | CDI ---
Last Revision, April 2017 Documentation Clarification Form Mortality Review Date: 06/01/2017 3:56:00 PM From: Migdalia Barlow RN, CCDS Admit Date: 05/27/2017 6:59:00 PM Patient Name: Keshawn Lui Visit Number: [id number] ATTENTION: The Clinical Documentation Specialists (CDI) and [facility] Coding Staff appreciate your assistance in clarifying documentation. Please respond to the clarification below the line at the bottom and electronically sign. The CDI & [facility] Coding staff will review the response and follow-up if needed. Please note: Queries are made part of the Legal Health Record. If you have any questions, please contact the author of this message via ITS. Dr. Demario Aragon History/Risk Factors: Alcoholic cardiomyopathy, ex-smoker. Atrial Fib, pt was on Diuretics at home Clinical Indicators: VS/Pulse OX: HR 140-170, RR 35-48, B/P 80/56, spo2 99% 2l NC BNP: [id number] 04/19/15 Echocardiogram Results: EF 25-30%, paradoxical dysynergic septal wall motion, la severely dilated, moderate mitral regurg, severe tricuspid regurg, severe left global hypokinesis of LV 05/27 Chest X Ray: right pleural effusion, clearing of left pleural effusion, mild CHF Treatment: Lasix 40 MG PO OT Aldactone 25 mg PO QD ordered- never given In your professional opinion, can you please clarify the acuity and type of CHF if known to accurately reflect your patients risk of Mortality and severity of illness? Systolic Heart Failure: Acute Chronic Acute on Chronic Systolic & Diastolic Heart Failure: Acute Chronic Acute on Chronic Heart Failure Unable to Determine Other, please specify Please continue to document in your progress notes and discharge summary in order to capture severity of illness and risk of mortality. Include clinical findings that support your diagnosis. MTDD
--- NOTE | 2017-06-01 16:26 | CDI ---
Last Revision, April 2017 Documentation Clarification Form Date: 06/01/2017 4:13:00 PM From: Migdalia Barlow RN, CCDS Admit Date: 05/27/2017 6:59:00 PM Patient Name: Keshawn Lui Visit Number: [id number] ATTENTION: The Clinical Documentation Specialists (CDI) and [facility] Coding Staff appreciate your assistance in clarifying documentation. Please respond to the clarification below the line at the bottom and electronically sign. The CDI & [facility] Coding staff will review the response and follow-up if needed. Please note: Queries are made part of the Legal Health Record. If you have any questions, please contact the author of this message via ITS. Dr. Demario Aragon Hypotension is documented in the progress notes. Patient history/risk factors: ETOH cardiomyopathy, A-Fib x 2 yrs, ETOH, on Diuretics at home. Clinical Indicators: Patient came in with severe SOB and A-Fib RVR, converted to 3rd degree HB went for a TVP. Pt cardiac arrested. Total downtime of 45 mines s/p Arrest x 2 Vitals: Temp 98.9, HR 155 dropped to 30's with 3rd degree HB Treatment: Dopamine, Levophed, and Vasopressin drips for B/P, renal perfusion, HR In your professional opinion, can you please specify the underlying cause of the hypotension if known to help accurately reflect the patients risk of mortality/ severity of illness? Cardiogenic Shock Cause Hypovolemic Shock Cause Other, please specify Unable to determine Please continue to document in your progress notes and discharge summary in order to capture severity of illness and risk of mortality. Include clinical findings that support your diagnosis. MTDD
--- NOTE | 2017-06-01 16:43 | CDI ---
Last Revision, April 2017 Documentation Clarification Form Mortality Review Date: 06/01/2017 4:26:00 PM From: Migdalia Barlow RN, CCDS Admit Date: 05/27/2017 6:59:00 PM Patient Name: Keshawn Lui Visit Number: [id number] ATTENTION: The Clinical Documentation Specialists (CDI) and [facility] Coding Staff appreciate your assistance in clarifying documentation. Please respond to the clarification below the line at the bottom and electronically sign. The CDI & [facility] Coding staff will review the response and follow-up if needed. Please note: Queries are made part of the Legal Health Record. If you have any questions, please contact the author of this message via ITS. Dr. Demario Aragon The patient presented with the following respiratory symptoms: severe dyspnea and SOB. Documentation and location in medical record included: History/Risk Factors: ETOH, ETOH Cardiomyopathy, CHF, A-Fib Tobacco use: current Clinical Indicators: S/P cardiopulmonary arrest x2, currently the patient is on the mechanical ventilator. 05/28 620 Vital signs: PT intubated during code- 1st set of post code vitals: ht 66, B/P 81/63, spo2 76% on 100% Mechanical vent Pulse oximetry: 76% on 100% MV 05/28 Pulmonary Lung/Breathing assessment:"Lungs reveal clear breath sounds. Her sounds are equal bilaterally. No adventitious lung sounds including wheezes rhonchi or crackles." ABG/CBG: pH 7.18 pCO2 39 pHCO3 14 Lactate -12.9 on 100% FIO2 Treatment: Continuous Pulse ox: Per ICU Protocol Vent: AC 20, TV 450, FIO2 100%, PEEP +5 O2: 100% on mechanical vent In your professional opinion, can you please clarify if these findings signify one of the following conditions to accurately reflect your patients risk of mortality and severity of illness? Acuity: Acute Chronic Acute on Chronic Specificity: Respiratory Failure, further specify (if known): With hypercapnia? With hypoxia? Other Diagnosis, please specify Unable to determine Please continue to document in your progress notes and discharge summary in order to capture severity of illness and risk of mortality. Include clinical findings that support your diagnosis. MTDD
--- NOTE | 2017-06-01 16:55 | CDI ---
Last Revision, April 2017 Documentation Clarification Form Mortality Review Date: 06/01/2017 4:45:00 PM From: Migdalia Barlow Admit Date: 05/27/2017 6:59:00 PM Patient Name: Keshawn Lui Visit Number: [id number] ATTENTION: The Clinical Documentation Specialists (CDI) and [facility] Coding Staff appreciate your assistance in clarifying documentation. Please respond to the clarification below the line at the bottom and electronically sign. The CDI & [facility] Coding staff will review the response and follow-up if needed. Please note: Queries are made part of the Legal Health Record. If you have any questions, please contact the author of this message via ITS. Dr. Demario Aragon History/Risk Factors: CHF, Atrial Fib, 3rd Degree heart block, hypotension, cardiopulmonary arrest, ETOH cardiomyopathy 04/24/15 Patients baseline BUN/CR/GFR: 28/.9/>60 Clinical Indicators: 05/28 Progress Note: "He became completely unresponsive and aneuric." 05/30 D/C Summary: "After that, he went into total organ failure with renal shutdown, respiratory failure and was placed on a ventilator." Current BUN: 44/48 Cr: 05/09.29 GFR: >60/56 Treatment: Dopamine, Levophed, and Vasopressin drips 700 cc ivf bolus Consults: Cardiology and Pulmonary In order to capture the severity of the above condition to accurately reflect the patients severity of illness and risk of Mortality, please clarify if the condition signifies: Acute renal failure, Please specify etiology (if known): Cortical Necrosis Medullary Necrosis Tubular Necrosis Acute kidney injury Other, please specify Unable to determine Please continue to document in your progress notes and discharge summary in order to capture severity of illness and risk of mortality. Include clinical findings that support your diagnosis. MTDD
--- NOTE | 2017-06-02 12:09 | MISC ---
MISCELLANOUS REPORT Clarify the type of atrial fibrillation. Chronic and permanent. Type of CHF. Acute on chronic. Specify type of hypotension. Cardiogenic shock. Clarify these findings signify one of the following conditions to accurately reflect yours patient's risk, mortality and severity of illness. Acuity would be acute. Specificity, respiratory failure with hypercapnia. Other diagnoses, please specify. Cardiovascular arrest. Acute renal failure. Acute kidney injury. MMODL / IJN: [id number] /
== END 2017-05-28 12:10 | disposition expired | DRG 308 ==
LOC: EC 15:42 → 6ICU 18:59
PROVIDERS: ADMIT Family Medicine; ATTEND Family Medicine
PROC: 5A12012 Performance of Cardiac Output, Single, Manual (ICD-10-PCS; 2017-05-28)
PROC: 5A1223Z Performance of Cardiac Pacing, Continuous (ICD-10-PCS; principal; 2017-05-28 05:24)
DX: I48.2 Chronic atrial fibrillation (principal); J96.02 Acute respiratory failure with hypercapnia; I46.9 Cardiac arrest, cause unspecified; G93.1 Anoxic brain damage, not elsewhere classified; N17.9 Acute kidney failure, unspecified; I11.0 Hypertensive heart disease with heart failure; I44.2 Atrioventricular block, complete; I47.1 Supraventricular tachycardia; R57.0 Cardiogenic shock; I42.6 Alcoholic cardiomyopathy; I50.9 Heart failure, unspecified; R00.1 Bradycardia, unspecified; Z79.01 Long term (current) use of anticoagulants; J44.9 Chronic obstructive pulmonary disease, unspecified; E07.9 Disorder of thyroid, unspecified; F10.10 Alcohol abuse, uncomplicated; F12.11 Cannabis abuse, in remission; F11.11 Opioid abuse, in remission; Z79.82 Long term (current) use of aspirin; Z79.899 Other long term (current) drug therapy; Z87.891 Personal history of nicotine dependence; Z87.81 Personal history of (healed) traumatic fracture; Z86.718 Personal history of other venous thrombosis and embolism
CPT/HCPCS: 33210; 36415; 36600; 71045; 80053; 80162; 81001; 82550; 82553; 82805; 83605; 83735; 83880; 84100; 84484; 85025; 85610; 85730; 87040; 87086; 93005; 94002; 96360; 96365; 96366; 96375; 99291